=== PATIENT | male | born 1940 | race Caucasian/White ===

== ENCOUNTER 2023-10-19 10:57 | Outpatient (REF) | payer MEDICARE, SELFPAY ==
--- NOTE | ~2023-10-19 | XR_ITS ---
EXAMINATION: XR THORACIC SPINE, 3 VIEWS XR LUMBAR SPINE, 5 VIEWS CLINICAL INFORMATION: Other intervertebral disc degeneration COMPARISON: None available. TECHNIQUE: 3 views of the thoracic spine 5 views of lumbar spine FINDINGS: 5 nonrib-bearing lumbar-type vertebral bodies. No acute visible fracture or dislocation. Slight dextrocurvature of the mid lumbar spine. Moderate multilevel degenerative changes disc space during, endplate sclerosis, osteophyte from it, and facet arthropathy. Vertebral body heights and disc spaces are otherwise maintained. Posterior elements are intact. Paraspinal soft tissues are unremarkable. Atherosclerotic desiccation's of the abdominal aorta. Bowel gas is unremarkable. Partially visualized shoulder arthroplasty hardware. XR/XR lumbar spine 4V min IMPRESSION: 1. No acute visible fracture or dislocation. 2. Slight dextrocurvature of the mid lumbar spine. 3. Moderate multilevel degenerative changes.
--- NOTE | ~2023-10-19 | XR_ITS ---
EXAMINATION: XR THORACIC SPINE, 3 VIEWS XR LUMBAR SPINE, 5 VIEWS CLINICAL INFORMATION: Other intervertebral disc degeneration COMPARISON: None available. TECHNIQUE: 3 views of the thoracic spine 5 views of lumbar spine FINDINGS: 5 nonrib-bearing lumbar-type vertebral bodies. No acute visible fracture or dislocation. Slight dextrocurvature of the mid lumbar spine. Moderate multilevel degenerative changes disc space during, endplate sclerosis, osteophyte from it, and facet arthropathy. Vertebral body heights and disc spaces are otherwise maintained. Posterior elements are intact. Paraspinal soft tissues are unremarkable. Atherosclerotic desiccation's of the abdominal aorta. Bowel gas is unremarkable. Partially visualized shoulder arthroplasty hardware. XR/XR thoracic spine 3V IMPRESSION: 1. No acute visible fracture or dislocation. 2. Slight dextrocurvature of the mid lumbar spine. 3. Moderate multilevel degenerative changes.
== END 2023-10-19 10:58 | disposition home or self-care (01) ==
LOC: HO.XRAY 10:57
PROVIDERS: PCP Pediatrics; Referring Provider Pediatrics; Visit Provider Nurse Practitioner Family
DX: M51.36 Other intervertebral disc degeneration, lumbar region (principal); M54.50 Low back pain, unspecified; G89.29 Other chronic pain; Z91.81 History of falling
CPT/HCPCS: 72072; 72110; 99202

== ENCOUNTER 2023-10-19 10:57 | Outpatient (AMB) | payer MEDICARE, SELFPAY ==
--- NOTE | 2023-10-19 10:59 | MHC.OFFVIS ---
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 He is accompanied by his . Patient reports chronic low back pain that has been recently exacerbated by mechanical fall in August when he put down the walker over the curb at the local pharmacy and his walker tipped over and he fell backwards. Patient reports he landed on his right hip and also hit his head. He also fell the following day at home after getting up to the bathroom and fell backwards against the bed and thought he hit his head in similar spot. Denies loss of consciousness during both falls. Patient was evaluated in [facility] ER and brain CT scan on 09/11/23 showed no acute intracranial findings. Patient continues anticoagulation with Eliquis. His main concerns today are axial low back pain with radiation into his right side without midline tenderness or radicular symptoms in his lower extremities. He attributes back pain to advanced arthritis. Xray on 03/10/23 at [facility] showed dextroconvex scoliosis, facet degenerative changes in the mid-lower lumbar spine and degenerative changes of bilateral hips. Denies previous spine or hip surgery or injections. He ambulates slowly with antalgic gait, with mild limping. Pain limits his daily activities, functioning, mobility and social interactions. His assists with his daily activities and drives him for medical appointments. Denies any fever, weight loss, abdominal or groin pain, bladder or bowel dysfunction or saddle anesthesia. Patient is currently in physical therapy for balance. Patient attributes his falls to gait disturbance and balance issues with occasional dizziness. His heart rate is 55 and with manual recheck at 53-56. He denies any chest pain, shortness of breaths, lightheadedness or malaise. Family reports patient takes all of his medications regularly, including metoprolol BID and amiodarone daily. Reports upcoming follow up with his Cardiology provider next week. Location Lower back pain Duration Chronic pain due to arthritis, worse for the past 6 months Characteristics of symptom or complaint Aching Aggravating or associated factors Walking, bending forward or backwards, prolonged sitting, cold weather Relieving factors Acetaminophen- no improvement, TENS unit, lidocaine patches-minimal relief Treatment PT- just completed 3 weeks ago, did not help. [facility] Medical History (Updated 10/19/23 @ 12:02 by FRANKLIN Schumacher) Chronic bilateral low back pain without sciatica Arthritis Degenerative disc disease, lumbar Social History Alcohol intake: current Alcohol intake frequency: 0-2 drinks per day Patient Tobacco Use Status: Former Tobacco user Review of Systems Const All systems reviewed & are unremarkable except as noted in HPI and below Reports as per HPI, Denies chills, Reports fatigue, Denies fever(s), Denies headache(s), Denies malaise, Denies night sweats, Reports weakness and Denies weight loss Eyes Denies blurry vision and Denies photophobia ENT Denies vertigo, Denies headache(s) and Reports hearing loss Card Denies chest pain at rest, Denies chest pain with activity, Denies claudication, Denies lightheadedness, Denies palpitations, Denies dyspnea on exertion and Reports slow heart rate Resp Denies cough and Denies dyspnea on exertion Musc Reports as per HPI, Reports back pain, Reports arthralgias, Denies joint swelling, Reports limited range of motion, Denies numbness, Denies radiating pain into limb, Reports stiffness and Denies tingling Neuro Denies vertigo, Denies headache(s), Denies numbness, Denies tingling and Reports weakness Endo Reports fatigue and Denies palpitations Physical Exam Vital Signs: Last Vital Signs Pulse 55 10/19/23 11:10 BP 178/80 H 10/19/23 11:10 Pulse Ox 97 10/19/23 11:10 Oxygen Delivery Method Room Air 12/04/23 11:10 BMI result Body Mass Index 25.6 General: Appears afebrile. Alert and oriented. Mood and affect appropriate. Follows and participates in conversation appropriately. Respiratory effort is unlabored. No cough. Able to transition from sit to stand unassisted. Ambulates with walker. Ambulates with bilaterally normal heel strike and toe off. Eyes Direct Ophthalmoscopy: No photophobia Back/Spine/Pelvis Other: Limited lumbar ROM due to pain. Antalgic gait with mild limping. Can flex forward to 60-65 degrees and extend to 5-10 degrees before experiencing lumbar pain, worse with extension. Demonstrates 5/5 right and 4/5 left strength of quadriceps bilaterally as well as flexion/dorsiflexion of bilateral feet against resistance. 2+ pedal pulses bilaterally. Seated straight leg rise with dorsiflexion negative bilaterally. Diminished patellar and achilles reflexes bilaterally. Facet loading test positive bilaterally. Ney sign positive bilaterally, Julian?s, SI distraction, Pelvic compression and Stinchfield tests are negative bilaterally. No groin pain with I/E hip rotations. Cervical Spine: cervical ROM normal, loss of normal cervical lordosis and No Cervical spine tenderness Thoracic/Lumbar Spine: thoracic and lumbar spine normal to inspection, No Thoracic/lumbar spine scar(s), Lasegue's sign negative, straight leg raise negative bilaterally, pain with thoraco-lumbar ROM, paraspinal muscle tenderness on the left greater than right, thoraco-lumbar ROM limited, Thoracic/lumbar scoliosis, No thoracic spinal tenderness and lumbar spinal tenderness (L4-S1) Pelvis: buttock tenderness bilaterally Sacroiliac joints: bilaterally nontender Extrem General: Yes capillary refill normal, Yes no clubbing, cyanosis or edema and Yes no calf tenderness Psych Appearance: grossly normal Mental Status: mental status grossly normal and other (forgetful) Speech and movement: Clear speech present Affect: normal affect Attitude: cooperative Thought process: Normal thought process present Thought content: Normal thought content present Insight: Fair insight present (Psych) Judgement: Fair judgement present (Psych) Results Reviewed Results Reviewed: Assessment & Plan Assessment & Plan (1) Degenerative disc disease, lumbar: Code(s): M51.36 - Other intervertebral disc degeneration, lumbar region (2) Chronic bilateral low back pain without sciatica: Code(s): M54.50 - Low back pain, unspecified; G89.29 - Other chronic pain (3) History of recent fall: Code(s): Z91.81 - History of falling (4) Lumbosacral spondylosis: Code(s): M47.817 - Spondylosis without myelopathy or radiculopathy, lumbosacral region Plan Patient declines spine imaging status post recent fall. We will proceed with thoracic and lumbar spine imaging to assess degree of degenerative changes, any subluxation, listhesis, compression fractures or pars defects as well as sent medical release request to [facility] for previous x-rays and MRIs of lumbar spine. Tentatively schedule Diagnostic Bilateral L3-L4-DR L5 MBB with local and fluoroscopy for potential Sprint PNS, therapeutic injections or lumbar medial branch RFAs. Patient is asking for a stronger pain medication today for low back pain since Tylenol has not been effective for him. I have informed patient and his that our office does not offer opioid prescribing at this time. Advised against opioids due to increased risk for repeated falls as well as sinus bradycardia and balance issues. Continue PT and HEP for balance. Patient was encouraged to follow-up with Cardiology as planned and discuss potential Holter Monitor as well as check heart rate at home prior taking metoprolol and amiodarone and notify his PCP/Cardiology if HR <60 consistently. All questions and concerns have been answered for and patient and his are in agreement. Follow-up for x-ray results and sooner as needed. Orders: Orders XR thoracic spine 3V Today G89.29 - Other chronic pain, M51.36 - Other intervertebral disc degeneration, lumbar region, M54.50 - Low back pain, unspecified, Z91.81 - History of falling XR lumbar spine 4V min Today G89.29 - Other chronic pain, M51.36 - Other intervertebral disc degeneration, lumbar region, M54.50 - Low back pain, unspecified Medications: New diclofenac sodium 1% (Arthritis Pain (diclofenac)) 4 grams topical QID 100 grams 1RF pain G89.29 - Other chronic pain, M51.36 - Other intervertebral disc degeneration, lumbar region, M54.50 - Low back pain, unspecified lidocaine 5% 1 patch topical DAILY 30 days 30 ea 1RF pain G89.29 - Other chronic pain, M47.817 - Spondylosis without myelopathy or radiculopathy, lumbosacral region, M51.36 - Other intervertebral disc degeneration, lumbar region, M54.50 - Low back pain, unspecified Coding Level of Care Code New Pt Level 4 (24797) Diagnoses Degenerative disc disease, lumbar M51.36 Chronic bilateral low back pain without sciatica M54.50; G89.29 History of recent fall Z91.81 Lumbosacral spondylosis M47.817
[2023-10-19 11:10] VITALS: BP 178/80; PULSE 55; O2SAT 97; BMI 25.6
[2023-10-19 11:35] VITALS: PULSE 53
== END 2023-10-19 12:04 | disposition home or self-care (01) ==
PROVIDERS: PCP Pediatrics; Referring Provider Pediatrics; Visit Provider Nurse Practitioner Family
DX: M51.36 Other intervertebral disc degeneration, lumbar region (principal); M54.50 Low back pain, unspecified; G89.29 Other chronic pain; Z91.81 History of falling; M47.817 Spondylosis without myelopathy or radiculopathy, lumbosacral region
CPT/HCPCS: 99204

== ENCOUNTER 2023-10-23 08:38 | Outpatient (RCR) | payer MEDICARE, SELFPAY | END 2023-12-24 17:00 | disposition home or self-care (01) | LOC: HO.WCC 08:38 | PROVIDERS: PCP Pediatrics; Visit Provider Physician Assistant | DX: I70.243 Atherosclerosis of native arteries of left leg with ulceration of ankle (principal); L97.326 Non-pressure chronic ulcer of left ankle with bone involvement without evidence of necrosis; I87.2 Venous insufficiency (chronic) (peripheral); R60.0 Localized edema; Z79.891 Long term (current) use of opiate analgesic; F10.90 Alcohol use, unspecified, uncomplicated; I10 Essential (primary) hypertension; Z79.01 Long term (current) use of anticoagulants | CPT/HCPCS: 11042; 11044; 97597; 99212 ==

== ENCOUNTER 2023-11-24 06:16 | Outpatient (REF) | payer MEDICARE, SELFPAY ==
--- NOTE | ~2023-11-24 | FL_ITS ---
EXAMINATION: XR FLUOROSCOPY WITH IMAGES CLINICAL INFORMATION: Spondylosis without myelopathy or radiculopathy, lumbosacral region. COMPARISON: None available. TECHNIQUE: Fluoroscopy Supervised By: Dr. Edenilson Watson. Fluoroscopy Time: 0.5 minutes. Cumulative Dose: 19.2 mGy. DAP: 0.335 mGym2 Images: 6. FINDINGS: Technical assistance and equipment were provided by the Department of Radiology during intraoperative fluoroscopy. A total of 6 limited fluoroscopic spot images are submitted for archival purposes. A radiologist was not present during the procedure. The images are available for review on PACS. FL/FL guidance in treatment room IMPRESSION: Technical assistance and equipment provided by the Department of Radiology during procedural fluoroscopy, as above. Please see procedure report for further details.
== END 2023-11-24 06:17 | disposition home or self-care (01) ==
LOC: CF 06:16
PROVIDERS: Visit Provider Anesthesiology
DX: M47.817 Spondylosis without myelopathy or radiculopathy, lumbosacral region (principal)
CPT/HCPCS: 64493; 64494; J2795; Q9967

== ENCOUNTER 2023-11-24 14:04 | Outpatient (AMB) | payer MEDICARE, SELFPAY ==
--- NOTE | 2023-11-24 13:39 | A.OFFVIS_ITS ---
Intake Vital Signs 11/24/23 14:53 11/24/23 14:54 Height 6 ft 3 in 63 ft Weight 205 lb 205 lb BMI 25.6 0.3 BP 122/64 126/80 Blood Pressure Location Lt brachial Lt brachial Position Sitting Sitting Respiration 14 14 Pulse 63 60 Pulse Source Pulse Oximeter Pulse Oximeter Pulse Oximetry (%) 95 96 Oxygen Delivery Method Room Air Room Air Comment pre-op post-op Intake Visit Reasons: BILATERAL DIAGNOSTIC L3,L4,DRL5 MBB/confirmed Allergies No Known Allergies Allergy (Verified 11/24/23 14:55) [facility] Medical History (Updated 10/19/23 @ 12:02 by FRANKLIN Schumacher) Chronic bilateral low back pain without sciatica Arthritis Degenerative disc disease, lumbar Social History Alcohol intake: current Alcohol intake frequency: 0-2 drinks per day Patient Tobacco Use Status: Former Tobacco user Physical Exam Vital Signs: Last Vital Signs Pulse 60 11/24/23 14:54 Resp 14 11/24/23 14:54 BP 126/80 11/24/23 14:54 Pulse Ox 96 11/24/23 14:54 Oxygen Delivery Method Room Air 11/24/23 14:54 BMI result Body Mass Index 0.3 Assessment & Plan Assessment & Plan (1) Lumbosacral spondylosis: Code(s): M47.817 - Spondylosis without myelopathy or radiculopathy, lumbosacral region Plan Diagnostic medial branch block L3,L4 dorsal ramus L5 bilateral.? ? ?Informed consent was explained to the patient. All questions were explained and? answered.? The patient was taken inside the operating room where she was positioned prone on the operating table. Time-out was performed delineating correct site, side, the nature of the procedure, patient's allergy, . All operating room staff was participating in OR time-out procedure. ? ? The lower back was prepped with ChloraPrep and draped with sterile towels.? C- arm was brought over the operating field and sq picture of L4-, L5 vertebra and S1 AREA were delineated on the screen.? Point of interest were delineated as confluence of superior articular process of L4 and L5 vertebra bilaterally with corresponding transverse processes as well as confluence of the sacral alae bilaterally with superior articular process of S1.? The projection of the point of interest to the skin were injected with the small amount of local anesthetic lidocaine 2% 1-1.5 cc.? After that 22 gauge 3.5 inch spinal needle was driven sequentially to the points of interest in tunnel vision fashion. After needles gently contacted the bone at the point of interests the needle was injected with small amount of the contrast.? The injection of the contrast did not demonstrate any intravascular or intrathecal spread of the contrast.? After that injection of the? ropivacaine 0.5%-1cc was performed at each needle location.??after that the needles were removed and Bandaids were applied. ? Upon completion of the injections? needle was? removed and sterile Band-Aids were applied.? The patient tolerated procedure very well. Orders: Orders FL guidance in treatment room Today M47.817 - Spondylosis without myelopathy or radiculopathy, lumbosacral region Coding Level of Care Code Procedure Only Diagnoses Lumbosacral spondylosis M47.817
[2023-11-24 14:53] VITALS: BP 122/64; PULSE 63; RESP 14; O2SAT 95; BMI 25.6
[2023-11-24 14:54] VITALS: BP 126/80; PULSE 60; RESP 14; O2SAT 96
== END 2023-11-24 14:45 | disposition home or self-care (01) ==
LOC: HO.PMCPRC 14:04
PROVIDERS: PCP Pediatrics; Visit Provider Anesthesiology
DX: M47.817 Spondylosis without myelopathy or radiculopathy, lumbosacral region (principal)
CPT/HCPCS: 64493; 64494

== ENCOUNTER 2023-12-02 09:47 | Outpatient (REF) | payer MEDICARE, SELFPAY ==
--- NOTE | ~2023-12-02 | US_ITS ---
EXAMINATION: Noninvasive assessment of the bilateral lower extremities with ARTERIAL DUPLEX and ANKLE BRACHIAL INDICES (ABIs). CLINICAL INFORMATION: Atherosclerotic disease with left lower extremity ulcer TECHNIQUE: Duplex Doppler techniques with waveform analysis and measurement of velocities in the bilateral common femoral, profunda femoris, superficial femoral, popliteal and tibial arteries were performed. Additionally, ankle pulse volume recordings, ankle pressure measurements and ankle brachial indices were obtained of the lower extremity arterial system bilaterally. The study was performed only at rest. COMPARISON: None FINDINGS: DIRECT DUPLEX DOPPLER FINDINGS: LEFT LEG: Common femoral artery: 61.3 cm/s, phasicity: Biphasic. Mild calcified plaque Profunda femoris artery: 60.9 cm/s, phasicity: Biphasic Superficial femoral artery (proximal): 61.3 cm/s, phasicity: Biphasic. Mild calcified plaque Superficial femoral artery (mid): 113 cm/s, phasicity: Biphasic. Mild calcified plaque Superficial femoral artery (distal): 107 cm/s, phasicity: Biphasic Popliteal artery: 82.8 cm/s, phasicity: Biphasic Posterior tibial artery: 272 cm/s at the ankle, phasicity: Biphasic. Dampened monophasic waveforms with a decrease velocities is seen in the proximal and mid segments Peroneal artery: 57.1 cm/s, phasicity: Biphasic Anterior tibial artery: 43.5 cm/s, phasicity: Biphasic Dorsalis pedis artery: 48.3 cm/s, phasicity: Biphasic ANKLE-BRACHIAL INDEX: Right: Nondiagnostic? Left: Nondiagnostic ANKLE PRESSURES: Right: PT greater than 200, DP greater than 200 Left: PT?164, DP?greater than 200 ANKLE PVR WAVEFORMS: Right: Abnormal Left: Abnormal US/US arterial duplex LE LT IMPRESSION: Right leg: Nondiagnostic ankle brachial index due to noncompressible vessels. Abnormal, dampened PVR waveform Left leg: Nondiagnostic ankle brachial index. Patent flow seen throughout the left lower extremity arterial vessels with dampened waveforms in the proximal mid posterior tibial artery and severe stenosis in the distal posterior tibial. Scattered calcified plaque present DALIA Reference: - >1.4 = calcified vessels - 0.9 - 1.4 = normal - no significant arterial disease - 0.7 - 0.89 = mild peripheral arterial disease - 0.51 - 0.69 = moderate peripheral arterial disease - ? 0.50 = severe peripheral arterial disease - < .30 = critical arterial disease
== END 2023-12-02 09:48 | disposition home or self-care (01) ==
LOC: HO.US 09:47
PROVIDERS: PCP Pediatrics; Visit Provider Physician Assistant
DX: I73.9 Peripheral vascular disease, unspecified (principal); I87.2 Venous insufficiency (chronic) (peripheral); M47.817 Spondylosis without myelopathy or radiculopathy, lumbosacral region; M51.36 Other intervertebral disc degeneration, lumbar region; M54.51 Vertebrogenic low back pain; M54.50 Low back pain, unspecified; G89.29 Other chronic pain
CPT/HCPCS: 93923; 93926; 99212

== ENCOUNTER 2023-12-02 11:08 | Outpatient (AMB) | payer MEDICARE, SELFPAY ==
[2023-12-02 11:20] VITALS: BP 179/73; PULSE 58; RESP 14; O2SAT 97
--- NOTE | 2023-12-02 11:20 | A.OFFVIS_ITS ---
Intake Vital Signs 3 12/02/23 11:20 Height 6 ft 3 in BP 179/73 H Blood Pressure Location Lt brachial Position Sitting Respiration 14 Pulse 58 Pulse Source Pulse Oximeter Pulse Oximetry (%) 97 Oxygen Delivery Method Room Air Intake Visit Reasons: BILATERAL DIAGNOSTIC L3,L4, DRL5 MBB/11/24/23/lvm Allergies No Known Allergies Allergy (Verified 12/02/23 11:21) Medication List - Last Reconciled 12/02/23 by Lorna Villarreal LPN amiodarone 200 mg PO DAILY amitriptyline 40 mg PO BEDTIME apixaban (Eliquis) 5 mg PO BID atorvastatin 40 mg PO DAILY bupropion HCl mg PO diclofenac sodium 1% (Arthritis Pain (diclofenac)) 4 grams topical QID donepezil mg PO fluticasone furoate 27.5 mcg/actuation (Flonase Sensimist) 2 sprays intranasal DAILY furosemide 20 mg PO DAILY lidocaine 5% 1 patch topical DAILY 30 days losartan 25 mg PO DAILY metoprolol tartrate 50 mg PO BID HPI HPI Comments 2 History of Present Illness0 Details Patient presents today for a follow up after Bilateral Diagnostic L3-L4-DR L5 MBBs on 11/24/[address] Watson.? Patient reports 30% relief for?2 hours following the procedure without significant improvement in his daily functioning, mobility and range of motion. Patient continues to endorse significant low back pain with bending forward, lifting, prolonged sitting during driving, walking and standing which also increase his low back pain. He denies any numbness or tingling in his lower extremities, but reports anterior thigh paresthesias bilaterally and weakness in his lower back with prolonged walking. He has been treating his pain with Tylenol, diclofenac topical gel, lidocaine patches and heating pad with minimal relief. Pain affects his mobility, functioning, sleep and social interactions. Patient denies significant pain with sitting but reports getting up from chair increases his back and legs pain. Denies any fever, abdominal or groin pain, foot drop, bladder or bowel dysfunction or saddle anesthesia. 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 He is accompanied by his . Patient reports chronic low back pain that has been recently exacerbated by mechanical fall in August when he put down the walker over the curb at the local pharmacy and his walker tipped over and he fell backwards. Patient reports he landed on his right hip and also hit his head. He also fell the following day at home after getting up to the bathroom and fell backwards against the bed and thought he hit his head in similar spot. Denies loss of consciousness during both falls. Patient was evaluated in [facility] and brain CT scan on 09/11/23 showed no acute intracranial findings. Patient continues anticoagulation with Eliquis. His main concerns today are axial low back pain with radiation into his right side without midline tenderness or radicular symptoms in his lower extremities. He attributes back pain to advanced arthritis. Xray on 03/10/23 at [facility] showed dextroconvex scoliosis, facet degenerative changes in the mid-lower lumbar spine and degenerative changes of bilateral hips. Denies previous spine or hip surgery or injections. He ambulates slowly with antalgic gait, with mild limping. Pain limits his daily activities, functioning, mobility and social interactions. His assists with his daily activities and drives him for medical appointments. Denies any fever, weight loss, abdominal or groin pain, bladder or bowel dysfunction or saddle anesthesia. Patient is currently in physical therapy for balance. Patient attributes his falls to gait disturbance and balance issues with occasional dizziness. His heart rate is 55 and with manual recheck at 53-56. He denies any chest pain, shortness of breaths, lightheadedness or malaise. Family reports patient takes all of his medications regularly, including metoprolol BID and amiodarone daily. Reports upcoming follow up with his Cardiology provider next week. Location Lower back pain Duration Chronic pain due to arthritis, worse for the past 6 months Characteristics of symptom or complaint Aching Aggravating or associated factors Walking, bending forward or backwards, prolonged sitting, cold weather Relieving factors Acetaminophen- no improvement, TENS unit, lidocaine patches-minimal relief Treatment PT- just completed 3 weeks ago, did not help. [facility] Medical History Incomplete left bundle branch block Atrial fibrillation Kidney stones Hypertension Chronic headaches Chronic bilateral low back pain without sciatica Arthritis Degenerative disc disease, lumbar Social History Alcohol intake: current Alcohol intake frequency: 0-2 drinks per day Patient Tobacco Use Status: Former Tobacco user Review of Systems Const All systems reviewed & are unremarkable except as noted in HPI and below Physical Exam Vital Signs: Last Vital Signs Pulse 58 12/02/23 11:20 Resp 14 12/02/23 11:20 BP 179/73 H 12/02/23 11:20 Pulse Ox 97 12/02/23 11:20 Oxygen Delivery Method Room Air 12/02/23 11:20 General: Appears afebrile. Alert and oriented. Mood and affect appropriate. Follows and participates in conversation appropriately. Respiratory effort is unlabored. No cough. Able to transition from sit to stand unassisted. Ambulates with walker. Ambulates with bilaterally normal heel strike and toe off. Back/Spine/Pelvis Other: Mild midline tenderness to palpation in the lower lumbar region. Moderate paraspinal tenderness to palpation in the lumbar spine. Lumbar extension and flexion reproduces moderate to severe pain. No groin pain with I/E hip rotations bilaterally. Cervical Spine: cervical ROM normal, loss of normal cervical lordosis and No Cervical spine tenderness Thoracic/Lumbar Spine: thoracic and lumbar spine normal to inspection, No Thoracic/lumbar spine scar(s), Lasegue's sign negative, straight leg raise negative bilaterally, pain with thoraco-lumbar ROM, paraspinal muscle tenderness on the left greater than right, thoraco-lumbar ROM limited, Thoracic/lumbar scoliosis, No thoracic spinal tenderness and lumbar spinal tenderness (L4-S1) Pelvis: buttock tenderness bilaterally Sacroiliac joints: bilaterally nontender Results Reviewed Results Reviewed: XR THORACIC SPINE, 3 VIEWS XR LUMBAR SPINE, 5 VIEWS 10/19/23 CLINICAL INFORMATION: Other intervertebral disc degeneration COMPARISON: None available. TECHNIQUE: 3 views of the thoracic spine 5 views of lumbar spine FINDINGS: 5 nonrib-bearing lumbar-type vertebral bodies. No acute visible fracture or dislocation. Slight dextrocurvature of the mid lumbar spine. Moderate multilevel degenerative changes disc space during, endplate sclerosis, osteophyte from it, and facet arthropathy. Vertebral body heights and disc spaces are otherwise maintained. Posterior elements are intact. Paraspinal soft tissues are unremarkable. Atherosclerotic desiccation's of the abdominal aorta. Bowel gas is unremarkable. Partially visualized shoulder arthroplasty hardware. IMPRESSION: 1. No acute visible fracture or dislocation. 2. Slight dextrocurvature of the mid lumbar spine. 3. Moderate multilevel degenerative changes. Assessment & Plan Assessment & Plan (1) Lumbosacral spondylosis: Code(s): M47.817 - Spondylosis without myelopathy or radiculopathy, lumbosacral region (2) Degenerative disc disease, lumbar: Code(s): M51.36 - Other intervertebral disc degeneration, lumbar region (3) Vertebrogenic low back pain: Code(s): M54.51 - Vertebrogenic low back pain (4) Chronic bilateral low back pain without sciatica: Code(s): M54.50 - Low back pain, unspecified; G89.29 - Other chronic pain Plan Patient is status post diagnostic bilateral lumbar medial branch blocks with minimal pain relief. We will proceed with MRI of the lumbar spine to assess for neural integrity and compression prior to any further interventional treatments. Short script sent for Tylenol #3 for moderate to severe pain while patient awaits MRI test and further treatments. Patient is aware to call if pain worsens or if they develop any red flag symptoms to notify our office or seek emergency care. All questions and concerns have been answered and patient agreed with the plan. Follow up for MRI results and sooner as needed. Orders: Orders 2 MR lumbar spine wo con Today M47.817 - Spondylosis without myelopathy or radiculopathy, lumbosacral region, M51.36 - Other intervertebral disc degeneration, lumbar region, M54.51 - Vertebrogenic low back pain, Z91.81 - History of falling Medications: New 2 acetaminophen-codeine 300-30 mg 1 tab PO Q12H 15 days PRN 30 tabs 0RF pain M51.36 - Other intervertebral disc degeneration, lumbar region, M54.51 - Vertebrogenic low back pain Coding Level of Care Code Est Pt Level 4 (80411) Diagnoses Lumbosacral spondylosis M47.817 Degenerative disc disease, lumbar M51.36 Vertebrogenic low back pain M54.51 Chronic bilateral low back pain without sciatica M54.50; G89.29
== END 2023-12-02 11:51 | disposition home or self-care (01) ==
PROVIDERS: PCP Pediatrics; Visit Provider Nurse Practitioner Family
DX: M47.817 Spondylosis without myelopathy or radiculopathy, lumbosacral region (principal); M51.36 Other intervertebral disc degeneration, lumbar region; M54.51 Vertebrogenic low back pain; M54.50 Low back pain, unspecified; G89.29 Other chronic pain
CPT/HCPCS: 99214

== ENCOUNTER 2023-12-22 15:18 | Outpatient (REF) | payer MEDICARE, SELFPAY ==
--- NOTE | ~2023-12-22 | MR_ITS ---
MR LUMBAR SPINE WITHOUT CONTRAST CLINICAL INFORMATION: Spondylosis without myelopathy or radiculopathy. COMPARISON: None available. TECHNIQUE: MRI of the lumbar spine was obtained using routine sequences without contrast. FINDINGS: Rightward convex scoliotic curvature of the lumbar spine. There are 5 nonrib-bearing lumbar-type vertebral bodies. There are multilevel endplate osteophytes. There are Modic type I endplate signal changes at L2-L3, L3-L4, L4-L5, and L5-S1. There is no additional bone marrow edema. Conus terminates at the L1-L2 level. Bilateral renal cysts including a probable hemorrhagic cyst in the left side. Hypertrophic degenerative changes across the SI joints bilaterally. L1-L2: There is a small annular disc bulge and there is mild bilateral facet arthropathy. A shallow synovial cyst projecting anteriorly from the degenerative left facet joint indents the left dorsal thecal sac without compressing nerve roots. There is no central canal stenosis and there is no foraminal stenosis. L2-L3: Small annular disc bulge and moderate bilateral hypertrophic facet arthropathy. There is no central canal stenosis. There is mild foraminal encroachment bilaterally. L3-L4: There is a diffuse disc osteophyte complex and there is severe bilateral facet arthropathy and ligamentum flavum thickening. There is no central canal stenosis. There is moderate to severe left foraminal stenosis with mass effect on the exiting left L3 nerve root. L4-L5: Diffuse disc osteophyte complex and severe bilateral facet arthropathy and ligamentum flavum thickening. No central canal stenosis. Left lateral disc osteophyte and facet arthropathy result in moderate left foraminal stenosis with mild mass effect on the exiting left L4 nerve root. L5-S1: There is a shallow right paracentral disc protrusion that results in mild posterior deflection of the traversing right S1 nerve root within the right subarticular zone. There is severe bilateral facet arthropathy. No central canal stenosis. Mild foraminal encroachment bilaterally. MR/MR lumbar spine wo con IMPRESSION: - Rightward convex lumbar scoliosis superimposed on multilevel degenerative disc disease and hypertrophic facet arthropathy: - At L3-L4, multifactorial degenerative changes result in moderate to severe left foraminal stenosis with mass effect on the exiting left L3 nerve root. - At L4-L5, multifactorial degenerative changes result in moderate left foraminal stenosis with mild mass effect on the exiting left L4 nerve root. - At L5-S1, a shallow right paracentral disc protrusion results in mild posterior deflection of the traversing right S1 nerve root within the right subarticular zone. - There are Modic type I endplate signal changes at L2-L3, L3-L4, L4-L5, and L5-S1. - Bilateral renal cysts including a probable hemorrhagic cyst on the left side that can be further assessed with renal ultrasound.
== END 2023-12-22 15:19 | disposition home or self-care (01) ==
LOC: HO.MRI 15:18
PROVIDERS: PCP Pediatrics; Visit Provider Nurse Practitioner Family
DX: M47.817 Spondylosis without myelopathy or radiculopathy, lumbosacral region (principal); M51.36 Other intervertebral disc degeneration, lumbar region; M54.51 Vertebrogenic low back pain; Z91.81 History of falling
CPT/HCPCS: 72148

== ENCOUNTER → 2024-01-08 13:49 | Outpatient (BNVA) | payer MEDICARE, SELFPAY | PROVIDERS: PCP Pediatrics; Visit Provider Nurse Practitioner Family | DX: M47.817 Spondylosis without myelopathy or radiculopathy, lumbosacral region (principal); M54.50 Low back pain, unspecified; M51.36 Other intervertebral disc degeneration, lumbar region; M54.51 Vertebrogenic low back pain; N28.1 Cyst of kidney, acquired; G89.29 Other chronic pain | CPT/HCPCS: 99212 ==

== ENCOUNTER 2024-01-08 13:58 | Outpatient (AMB) | payer MEDICARE, SELFPAY ==
--- NOTE | 2024-01-08 13:56 | A.OFFVIS_ITS ---
Intake Vital Signs 3 01/08/24 14:05 Height 6 ft 3 in Weight 210 lb BMI 26.2 BP 163/70 H Blood Pressure Location Lt brachial Position Sitting Pulse 56 Pulse Source Pulse Oximeter Pulse Oximetry (%) 98 Oxygen Delivery Method Room Air Intake Visit Reasons: Follow up MRI results- LMOVM Intake Note: Pain today 08/25 Window Tinter Required: No Accompanied by: Spouse Allergies No Known Allergies Allergy (Verified 01/08/24 14:04) HPI HPI Comments 2 History of Present Illness0 Details Patient presents today for follow up to discuss recent lumbar spine MRI results. Patient continues to endorse significant exacerbation of low back pain with movements, especially with bending or flexing forward. He does have occasional pain with prolonged sitting during driving, lifting, and walking. He denies any numbness or tingling in his lower extremities, but reports occasional anterior thigh paresthesias bilaterally and weakness in his lower back with prolonged walking. Patient has been taking Tylenol Arthritis around the clock, lidocaine and diclofenac gel and also tried Tylenol#3 without any pain relief. He also uses heating pad with minimal relief. Pain affects his mobility, functioning, sleep and social interactions. Patient denies significant pain with sitting but reports getting up from chair increases his back pain. Denies any fever, abdominal or groin pain, foot drop, bladder or bowel dysfunction or saddle anesthesia. 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 He is accompanied by his . Patient reports chronic low back pain that has been recently exacerbated by mechanical fall in August when he put down the walker over the curb at the local pharmacy and his walker tipped over and he fell backwards. Patient reports he landed on his right hip and also hit his head. He also fell the following day at home after getting up to the bathroom and fell backwards against the bed and thought he hit his head in similar spot. Denies loss of consciousness during both falls. Patient was evaluated in [facility] and brain CT scan on 09/11/23 showed no acute intracranial findings. Patient continues anticoagulation with Eliquis. His main concerns today are axial low back pain with radiation into his right side without midline tenderness or radicular symptoms in his lower extremities. He attributes back pain to advanced arthritis. Xray on 03/10/23 at [facility] showed dextroconvex scoliosis, facet degenerative changes in the mid-lower lumbar spine and degenerative changes of bilateral hips. Denies previous spine or hip surgery or injections. He ambulates slowly with antalgic gait, with mild limping. Pain limits his daily activities, functioning, mobility and social interactions. His assists with his daily activities and drives him for medical appointments. Denies any fever, weight loss, abdominal or groin pain, bladder or bowel dysfunction or saddle anesthesia. Patient is currently in physical therapy for balance. Patient attributes his falls to gait disturbance and balance issues with occasional dizziness. His heart rate is 55 and with manual recheck at 53-56. He denies any chest pain, shortness of breaths, lightheadedness or malaise. Family reports patient takes all of his medications regularly, including metoprolol BID and amiodarone daily. Reports upcoming follow up with his Cardiology provider next week. Location Lower back pain Duration Chronic pain due to arthritis, worse for the past 6 months Characteristics of symptom or complaint Aching Aggravating or associated factors Walking, bending forward or backwards, prolonged sitting, cold weather Relieving factors Acetaminophen- no improvement, TENS unit, lidocaine patches-minimal relief Treatment PT- just completed 3 weeks ago, did not help. [facility] Medical History (Updated 01/08/24 @ 14:33 by FRANKLIN Schumacher) UTI (urinary tract infection) Incomplete left bundle branch block Atrial fibrillation Kidney stones Hypertension Chronic headaches Chronic bilateral low back pain without sciatica Arthritis Degenerative disc disease, lumbar Surgical History (Updated 01/08/24 @ 14:33 by FRANKLIN Schumacher) History of cystoscopy Social History Alcohol intake: current Alcohol intake frequency: 0-2 drinks per day Patient Tobacco Use Status: Former Tobacco user Review of Systems Const All systems reviewed & are unremarkable except as noted in HPI and below Physical Exam Vital Signs: Last Vital Signs Pulse 56 01/08/24 14:05 BP 163/70 H 01/08/24 14:05 Pulse Ox 98 01/08/24 14:05 Oxygen Delivery Method Room Air 01/08/24 14:05 BMI result Body Mass Index 26.2 General: Appears afebrile. Alert and oriented. Mood and affect appropriate. Follows and participates in conversation appropriately. Respiratory effort is unlabored. No cough. Able to transition from sit to stand unassisted. Ambulates with walker. Back/Spine/Pelvis Other: Mild midline tenderness to palpation in the thoracic or lower lumbar region. Mild paraspinal tenderness to palpation in the lumbar spine. No CVA tenderness. Lumbar extension does not reproduce pain. Repetitive lumbar flexion and axial rotation reproduces pain. No groin pain with I/E hip rotations bilaterally. Cervical Spine: cervical ROM normal, loss of normal cervical lordosis and No Cervical spine tenderness Thoracic/Lumbar Spine: thoracic and lumbar spine normal to inspection, No Thoracic/lumbar spine scar(s), Lasegue's sign negative, straight leg raise negative bilaterally, pain with thoraco-lumbar ROM, paraspinal muscle tenderness on the left greater than right, thoraco-lumbar ROM limited, Thoracic/lumbar scoliosis, No thoracic spinal tenderness and lumbar spinal tenderness (L3-S1) Pelvis: buttock tenderness bilaterally Sacroiliac joints: bilaterally nontender Results Reviewed Results Reviewed: XR THORACIC SPINE, 3 VIEWS XR LUMBAR SPINE, 5 VIEWS 10/19/23 CLINICAL INFORMATION: Other intervertebral disc degeneration COMPARISON: None available. TECHNIQUE: 3 views of the thoracic spine 5 views of lumbar spine FINDINGS: 5 nonrib-bearing lumbar-type vertebral bodies. No acute visible fracture or dislocation. Slight dextrocurvature of the mid lumbar spine. Moderate multilevel degenerative changes disc space during, endplate sclerosis, osteophyte from it, and facet arthropathy. Vertebral body heights and disc spaces are otherwise maintained. Posterior elements are intact. Paraspinal soft tissues are unremarkable. Atherosclerotic desiccation's of the abdominal aorta. Bowel gas is unremarkable. Partially visualized shoulder arthroplasty hardware. IMPRESSION: 1. No acute visible fracture or dislocation. 2. Slight dextrocurvature of the mid lumbar spine. 3. Moderate multilevel degenerative changes. MR LUMBAR SPINE WITHOUT CONTRAST 12/22/23 CLINICAL INFORMATION: Spondylosis without myelopathy or radiculopathy. FINDINGS: Rightward convex scoliotic curvature of the lumbar spine. There are 5 nonrib-bearing lumbar-type vertebral bodies. There are multilevel endplate osteophytes. There are Modic type I endplate signal changes at L2-L3, L3-L4, L4-L5, and L5-S1. There is no additional bone marrow edema. Conus terminates at the L1-L2 level. Bilateral renal cysts including a probable hemorrhagic cyst in the left side. Hypertrophic degenerative changes across the SI joints bilaterally. L1-L2: There is a small annular disc bulge and there is mild bilateral facet arthropathy. A shallow synovial cyst projecting anteriorly from the degenerative left facet joint indents the left dorsal thecal sac without compressing nerve roots. There is no central canal stenosis and there is no foraminal stenosis. L2-L3: Small annular disc bulge and moderate bilateral hypertrophic facet arthropathy. There is no central canal stenosis. There is mild foraminal encroachment bilaterally. L3-L4: There is a diffuse disc osteophyte complex and there is severe bilateral facet arthropathy and ligamentum flavum thickening. There is no central canal stenosis. There is moderate to severe left foraminal stenosis with mass effect on the exiting left L3 nerve root. L4-L5: Diffuse disc osteophyte complex and severe bilateral facet arthropathy and ligamentum flavum thickening. No central canal stenosis. Left lateral disc osteophyte and facet arthropathy result in moderate left foraminal stenosis with mild mass effect on the exiting left L4 nerve root. L5-S1: There is a shallow right paracentral disc protrusion that results in mild posterior deflection of the traversing right S1 nerve root within the right subarticular zone. There is severe bilateral facet arthropathy. No central canal stenosis. Mild foraminal encroachment bilaterally. IMPRESSION: - Rightward convex lumbar scoliosis superimposed on multilevel degenerative disc disease and hypertrophic facet arthropathy: - At L3-L4, multifactorial degenerative changes result in moderate to severe left foraminal stenosis with mass effect on the exiting left L3 nerve root. - At L4-L5, multifactorial degenerative changes result in moderate left foraminal stenosis with mild mass effect on the exiting left L4 nerve root. - At L5-S1, a shallow right paracentral disc protrusion results in mild posterior deflection of the traversing right S1 nerve root within the right subarticular zone. - There are Modic type I endplate signal changes at L2-L3, L3-L4, L4-L5, and L5-S1. - Bilateral renal cysts including a probable hemorrhagic cyst on the left side that can be further assessed with renal ultrasound. Assessment & Plan Assessment & Plan (1) Renal cyst: Code(s): N28.1 - Cyst of kidney, acquired (2) Lumbosacral spondylosis: Code(s): M47.817 - Spondylosis without myelopathy or radiculopathy, lumbosacral region (3) Chronic bilateral low back pain without sciatica: Code(s): M54.50 - Low back pain, unspecified; G89.29 - Other chronic pain (4) Degenerative disc disease, lumbar: Code(s): M51.36 - Other intervertebral disc degeneration, lumbar region (5) Vertebrogenic low back pain: Code(s): M54.51 - Vertebrogenic low back pain Plan Lumbar spine MRI results reviewed with patient and his . We had an extensive discussion about BVN ablation (Intracept) procedure vs. spinal cord stimulation. Continued physical therapy as possible treatment options. Patient reports he did not gain any reduction in pain or increase in functioning. We will start with a L3-L4-L5-S1 intracept procedure with sedation and fluoroscopy as patient is not interested in any implantable devices. Discussed the risks and benefits of the procedure with the patient in detail. A procedure brochure was provided to the patient and his . Urology Referral to Dr. Shah per patient's request to further evaluate re: bilateral renal cysts including a probable hemorrhagic cyst on the left side. Copy also provided to patient's PCP. All questions and concerns have been answered. The patient and his family are on board with the plan. Justification for interventional therapy: ? Patient with average pain > 6/10 ? Patient has exhausted conservative therapy, PT, NSAIDs, Tylenol#3, Tylenol Arthritis, topical applications, heat therapy . Modic Type I changes noted on MRI exam with positive physical exam findings with lumbar flexion and axial rotation Orders: Referrals 2 Urology Referral N28.1 - Cyst of kidney, acquired Coding Level of Care Code Est Pt Level 4 (02005) Diagnoses Renal cyst N28.1 Lumbosacral spondylosis M47.817 Chronic bilateral low back pain without sciatica M54.50; G89.29 Degenerative disc disease, lumbar M51.36 Vertebrogenic low back pain M54.51
[2024-01-08 14:05] VITALS: BP 163/70; PULSE 56; O2SAT 98; BMI 26.2
== END 2024-01-08 14:57 | disposition home or self-care (01) ==
PROVIDERS: PCP Pediatrics; Visit Provider Nurse Practitioner Family
DX: N28.1 Cyst of kidney, acquired (principal); M47.817 Spondylosis without myelopathy or radiculopathy, lumbosacral region; M54.50 Low back pain, unspecified; G89.29 Other chronic pain; M51.36 Other intervertebral disc degeneration, lumbar region; M54.51 Vertebrogenic low back pain
CPT/HCPCS: 99214